=== PATIENT | female | born 2005 | race Two or more races ===

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

== ENCOUNTER 2024-07-01 21:42 | Emergency (ER) | payer MEDICAID ==
[~2024-07-01 21:42] MED LIST: ACET-1882 PO; AUG875T PO; CYAN500T3 PO; ERGO1CAP23 PO
== END 2024-07-01 23:00 | disposition left against medical advice (07) ==
LOC: ER 21:42
DX: S01.551A Open bite of lip, initial encounter (principal); Z53.21 Procedure and treatment not carried out due to patient leaving prior to being seen by health care provider; W54.0XXA Bitten by dog, initial encounter; Y93.89 Activity, other specified; Y92.9 Unspecified place or not applicable; Y99.9 Unspecified external cause status